=== PATIENT | male | born 1950 | race Caucasian/White ===

== ENCOUNTER → 2016-07-20 | Outpatient (CLI) | payer MEDICARE ==
[~2016-07-20] MED LIST: FAMOTIDINE20 M1 PO; LISINOPRIL20 MG PO; SIMVASTATIN40 MG PO; ZYRTEC10 M1 PO
--- NOTE | ~2016-07-20 | MR113 ---
[facility] A Service of [facility] & [facility] RADIOLOGY TEXT RESULTS PATIENT: REY JESUS LOCATION: [facility] : 48 UNIT #: [id number] AGE: [address]: Ruth Cruz MD SEX: M ORDER DR: [id number] [address] [address] [id number] O MR#: [id number] #: [id number] NAME: REY JESUS. : 1950 SEX: M STUDY DATE/TIME: 07/20/2016 11:55 UNIT: [facility] ROOM: STUDY DESCRIPTION: MR Lumbar Wo Contrast Attending Physician: Ruth Cruz M.D. Referring Physician: Ruth Cruz M.D. Ordering Physician: Ruth Cruz M.D. Primary Care Physician: Ruth Cruz M.D. MRI CENTER REPORT This report is preliminary unless electronic signature is present. EXAM Lumbar spine MRI without HISTORY No known injury or surgery. Increasing low back pain right hip and buttock pain for about 4-5 years. Abnormal plain films medication not helping no cancer. COMMENT MRI of the lumbar spine performed without contrast using routine 1.5T wide-bore imaging technique. Plain film comparison 07/06/2016. There is about 1.2 cm of grade 2 anterolisthesis of L5 on S1 secondary to chronic-appearing L5 pars defects. This is associated with severe 5-1 disc height loss disc desiccation and marrow endplate degenerative change which is mixed. The conus medullaris terminates at L1-2 and is normal. Mild disc desiccation 2-3 through 4-5 levels. At L1-2, there is mild bilateral facet degenerative change mild ligamentum flavum thickening. Minor posterior disc bulge and mild mass effect on the thecal sac. Mild bilateral inferior foraminal narrowing. At L2-3, moderate facet degenerative change bilaterally with moderate ligamentum flavum thickening. There is mild broad-based posterior disc bulge. Combination of findings result in approximately moderate canal stenosis and mass effect on the bilateral-lateral recesses. There is mild left and right side foraminal impingement. At L3-4, there is a mild concentric disc bulge and mild facet degenerative change bilaterally. There is mild effacement of the thecal sac but no central canal stenosis. There is [id number] right and left inferior foraminal narrowing. [facility]. [facility] A Service of [facility] RADIOLOGY TEXT RESULTS PATIENT: REY JESUS LOCATION: [facility] : 48 UNIT #: [id number] AGE: [address]: Ruth Cruz MD SEX: M ORDER DR: At L4-5, there is mild bilateral facet degenerative change. There is a broad-based posterior protrusion with small annular fissure most prominent midline in location with mild mass effect on the anterior thecal sac but no canal stenosis. Disc material extends into the inferior foramina and there is mild bilateral foraminal narrowing. At L5-S1, there is the above-noted grade 2 anterolisthesis of L5 on S1. This results in essentially severe canal stenosis at the level of the posterior superior endplate of S1. Considerable bony hypertrophic changes are seen and the desiccated disc material extends into the foramina bilaterally. There is also severe foraminal compromise bilaterally. IMPRESSION 1. Lumbar degenerative changes detailed above most significant appearing radiographically at the L5-S1 level where there is grade 2 anterolisthesis of L5 on S1 secondary to chronic-appearing bilateral L5 pars defects. This is associated with severe canal stenosis and severe bilateral foraminal impingement. 2. Please refer to the multilevel discussion of other findings. Milder canal stenosis at the 2-3 level. Dictated by... Dana Ulloa M.D. THIS IS AN ELECTRONICALLY VERIFIED REPORT Dana Ulloa M.D. at 07/21/2016 2:01 PM SAC/jessica TD: 07/20/2016 23:06 JOB #: [id number] MRI CENTER REPORT
== END | disposition home or self-care (01) ==
LOC: SMRI 11:39
DX: M54.5 Low back pain (principal); M47.816 Spondylosis without myelopathy or radiculopathy, lumbar region; M43.17 Spondylolisthesis, lumbosacral region; M48.06 Spinal stenosis, lumbar region
CPT/HCPCS: 72148